=== PATIENT | female | born 1950 | race Caucasian/White ===

== ENCOUNTER 2018-05-09 22:30 | Emergency (ER) | payer OTHER, MEDICARE ==
[~2018-05-09] VITALS: Ht 170.2 cm; Wt 81.6 kg
[2018-05-09 22:38] VITALS: BP_SYST 161
[2018-05-09] MEDS ORDERED: NACL 0.9% 2,000 ML IV ONE (23:00)
[2018-05-09] MEDS ORDERED: cefTRIAXone 1 GM IVPB PREMIX 50 ML IV ONE (23:00)
[2018-05-09] MEDS ORDERED: methylPREDNISolone SOD SUCC/PF 62.5 MG/ML VIAL IVP ONE (23:00)
[2018-05-09] MEDS ORDERED: AZITHROMYCIN 500 MG in NS 250 ML IV ONE (23:00)
[2018-05-09] MEDS ORDERED: ALBUTEROL SULFATE 0.083% 2.5 MG/3 ML VIAL.NEB IH ONE (23:00)
[2018-05-09] MEDS ORDERED: IPRATROPIUM BROM 0.5 MG/2.5 ML VIAL.NEB (ATROVENT) IH ONE (23:00)
[2018-05-09] MEDS ORDERED: MAGNESIUM SULFATE 50 ML IV ONE (23:00)
[2018-05-09] MEDS ORDERED: AZITHROMYCIN 500 MG/VIAL (ZITHROMAX) IV ONE (23:18)
[2018-05-09 23:24] LABS: BASOPHILS # (AUTO) 0.1 K/uL (0.0-0.2); BASOPHILS % (AUTO) 0.9 % (0.0-2.0); CALCIUM 9.4 mg/dL (8.4-11.0); CREATININE 0.8 mg/dL (0.55-1.30); EOSINOPHILS # (AUTO) 0.6 K/uL (0.0-0.4); EOSINOPHILS % (AUTO) 5.8 % (0.0-4.0); HEMATOCRIT 44.8 % (36-48); HEMOGLOBIN 14.3 g/dL (12.0-16.0); LYMPHOCYTES # (AUTO) 1.4 K/uL (1.0-5.5); MEAN CORPUSCULAR HEMOGLOBIN 31 pg (27-31); MEAN CORPUSCULAR HGB CONC 32 % (32-36); MEAN CORPUSCULAR VOLUME 99 fL (79.0-98.0); MONOCYTES # (AUTO) 0.5 K/uL (0.0-1.0); MONOCYTES % (AUTO) 4.6 % (1.7-9.3); NEUTROPHILS # (AUTO) 7.8 K/uL (1.8-7.7); PLATELET COUNT (AUTO) 109 K/uL (130-430); POTASSIUM 3.9 mmol/L (3.5-5.1); RED BLOOD CELL COUNT(AUTO) 4.55 MIL/uL (4.2-6.2); RED CELL DISTRIBUTION WIDTH 13.1 % (9.0-15.0); WHITE BLOOD COUNT (AUTO) 10.4 K/uL (4.8-10.8)
[2018-05-09 23:28] LABS: PROTHROMBIN TIME 10.4 SECS (9.5-12.5)
[2018-05-09 23:30] LABS: ALBUMIN 3.9 g/dL (3.4-4.8); TOTAL BILIRUBIN 0.5 mg/dL (0.0-1.0)
[2018-05-09 23:38] LABS: NEUTROPHILS % (AUTO) 75.7 % (40.0-70.0)
[2018-05-10 00:19] LABS: BILIRUBIN,URINE NEGATIVE (NEGATIVE); BLOOD, URINE NEGATIVE (NEGATIVE); CLARITY/URINE CLEAR (CLEAR); COLOR,URINE YELLOW (YELLOW); GLUCOSE,URINE NEGATIVE (NEGATIVE); KETONES,URINE NEGATIVE (NEGATIVE); LEUKOCYTE ESTERASE ,URINE TRACE (NEGATIVE); NITRITE, URINE NEGATIVE (NEGATIVE); PH,URINE 5.5 (5.0-8.0); PROTEIN URINE NEGATIVE (NEGATIVE); UROBILINOGEN,URINE 0.2 (0.2-1.0)
[2018-05-10 00:33] LABS: BACTERIA,URINE FEW /HPF (None Seen); RBC,URINE 0-3 /HPF (0-3)
[2018-05-10 01:34] VITALS: BP_SYST 142
== END 2018-05-10 01:33 | disposition home or self-care (01) ==
LOC: SED 22:30
DX: J44.1 Chronic obstructive pulmonary disease with (acute) exacerbation (principal); J98.01 Acute bronchospasm; I11.0 Hypertensive heart disease with heart failure; I50.9 Heart failure, unspecified
CPT/HCPCS: 36415; 71045; 80053; 81000; 83605; 83735; 85025; 85610; 87040; 87086; 93005; 94640; 96365; 96367; 96368; 99285; J0456; J0696; J2930; J3475; J7030; J7613

== ENCOUNTER 2018-11-08 09:45 | Emergency (ER) | payer OTHER, MEDICARE ==
[~2018-11-08] VITALS: Ht 170.2 cm; Wt 76.2 kg
[2018-11-08 09:45] VITALS: BP_SYST 165
--- NOTE | 2018-11-08 09:45 | NUR ---
IMMEDIATELY BROUGHT BACK TO BED #2 VIA WHEELCHAIR, CALLED FOR DR TO BEDSIDE. TRIAGED AND REPORT GIVEN TO MARCIN
--- NOTE | 2018-11-08 09:46 | NUR ---
JAMEL Stockton at bedside examining patient.
--- NOTE | 2018-11-08 09:50 | NUR ---
Pt presents to ED c/o SOB and tachypnea.Pt afebrile, h/o afib # 18 gauge angiocath placed to LAC. Use of asceptic technique. Opsite placed over site. Blood return noted. Flushed with 10 cc of normal saline. No evidence of infiltration noted. Patient tolerated well.
[2018-11-08] MEDS ORDERED: methylPREDNISolone SOD SUCC/PF 62.5 MG/ML VIAL IVP ONE (10:00)
[2018-11-08] MEDS ORDERED: IPRATROPIUM/ALBUTEROL SULFATE 3 ML AMPUL.NEB (DUONEB) INH ONE (10:00)
[2018-11-08] MEDS ORDERED: DIPHENHYDRAMINE INJ 50 MG/ML VIAL IVP ONE (10:00)
[2018-11-08] MEDS ORDERED: LORazepam 2 MG/ML VIAL (FOR ER USE) IVP ONE (10:00)
[2018-11-08] MEDS ORDERED: methylPREDNISolone SOD SUCC/PF 62.5 MG/ML VIAL ONE (10:00)
[2018-11-08] MEDS ORDERED: DILTIAZEM HCL 25 MG/5 ML VIAL IVP ONE ×2 (10:00→10:30)
--- NOTE | 2018-11-08 10:00 | NUR ---
RT at bedside for breathing tx.
[2018-11-08] MEDS ORDERED: DIPHENHYDRAMINE INJ 50 MG/ML VIAL ONE (10:10)
[2018-11-08] MEDS ORDERED: NACL 0.9% 1,000 ML IV ONE (10:30)
--- NOTE | 2018-11-08 10:30 | NUR ---
Pt reports ease in resp effort. Solu-medrol given
--- NOTE | 2018-11-08 10:50 | NUR ---
Pt reports anxiety resolving and increased ease in respiratory effort
--- NOTE | 2018-11-08 10:50 | NUR ---
Pt given Benadryl for possible reaction to solumedrol.Pt appears anxious,
--- NOTE | 2018-11-08 11:00 | NUR ---
Pt medicated for AFib, continuing to monitor
[2018-11-08 11:12] LABS: ANION GAP 12 (5-15); CALCIUM 9.6 mg/dL (8.4-11.0); CHLORIDE 103 mmol/L (98-107); CREATININE 0.85 mg/dL (0.55-1.30); GLUCOSE 111 mg/dL (70-99); POTASSIUM 3.5 mmol/L (3.5-5.1); SODIUM SERUM 141 mmol/L (136-145); UREA NITROGEN, BLOOD 14 mg/dL (8-21)
[2018-11-08 11:17] LABS: GFR AFRICAN AMERICAN 85 mL/min (>90)
[2018-11-08 11:26] LABS: ALANINE AMINOTRANSFERASE 40 U/L (12-78); ALBUMIN 3.8 g/dL (3.4-4.8); ASPARTATE AMINOTRANSFERASE 24 U/L (10-37); FREE T4 (FREE THYROXINE) 0.9 ng/dl (0.8-1.5); THYROID STIMULATING HORMONE 1.53 uIu/mL (0.36-3.74); TOTAL BILIRUBIN 0.6 mg/dL (0.0-1.0)
[2018-11-08 11:28] LABS: HEMATOCRIT 43.7 % (36-48); HEMOGLOBIN 14.4 g/dL (12.0-16.0); MEAN CORPUSCULAR HEMOGLOBIN 31 pg (27-31); MEAN CORPUSCULAR VOLUME 93 fL (79.0-98.0)
[2018-11-08 11:29] LABS: BASOPHILS # (AUTO) 0.1 K/uL (0.0-0.2); BASOPHILS % (AUTO) 0.7 % (0.0-2.0); EOSINOPHILS # (AUTO) 0.5 K/uL (0.0-0.4); EOSINOPHILS % (AUTO) 4.9 % (0.0-4.0); LYMPHOCYTES # (AUTO) 1.8 K/uL (1.0-5.5); MEAN CORPUSCULAR HGB CONC 33 % (32-36); MONOCYTES # (AUTO) 0.5 K/uL (0.0-1.0); MONOCYTES % (AUTO) 5.1 % (1.7-9.3); NEUTROPHILS # (AUTO) 7.1 K/uL (1.8-7.7); NEUTROPHILS % (AUTO) 71.3 % (40.0-70.0); PLATELET COUNT (AUTO) 132 K/uL (130-430); RED CELL DISTRIBUTION WIDTH 13.9 % (9.0-15.0)
--- NOTE | 2018-11-08 11:30 | NUR ---
Pt report s/s resolved,
--- NOTE | 2018-11-08 11:40 | NUR ---
Pt tolerated second Cardizem well.
--- NOTE | 2018-11-08 12:00 | NUR ---
Pt converted to SR. Pt has no acute distress noted.
[2018-11-08 12:20] VITALS: BP_SYST 123
--- NOTE | 2018-11-08 12:20 | NUR ---
Patient given written and verbal discharge instructions and verbalizes understanding. ER MD discussed with patient the results and treatment provided. Patient in stable condition. ID arm band removed. IV catheter removed intact and dressing applied, no active bleeding. No Rx given. Patient educated on pain management and to follow up with PMD. Pain Scale 0. Opportunity for questions provided and answered. Medication side effect fact sheet provided.
== END 2018-11-08 12:20 | disposition home or self-care (01) ==
LOC: SED 09:45
DX: I48.91 Unspecified atrial fibrillation (principal); I11.0 Hypertensive heart disease with heart failure; I50.9 Heart failure, unspecified; J44.9 Chronic obstructive pulmonary disease, unspecified; R06.02 Shortness of breath; R06.2 Wheezing
CPT/HCPCS: 36415; 71045; 80053; 84439; 84443; 84484; 85025; 93005; 94640; 96374; 96375; 99284; J1200; J2930; J3490; J7030; J7620